=== PATIENT | female | born 2005 | race Caucasian/White ===

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

== ENCOUNTER 2023-01-27 23:29 | Emergency (ER) | payer MEDICAID ==
--- NOTE | 2023-01-27 23:45 | ED Physician Documentation ---
PD HPI ABD PAIN - Stated complaint Stated Complaint: ABD PX/NAUSEA - Chief complaint Chief Complaint: Abd Pain - History obtained from History obtained from: Patient - Additional information Additional information: HPI from patient. Patient complains of abdominal pain, right-sided and most pronounced in the right lower quadrant. Pain was of gradual onset approximately 3 to 4 days ago, steadily worsening. Pain is worse with palpation, movement. She has had nausea and vomiting with this pain. Patient says she has had similar pain in the past associated with an ovarian cyst (I note that she was evaluated 08/20/2022 in [facility] ED with CT and pelvic ultrasound revealing a right-sided ovarian cyst). In further conversation on this HPI, patient is indicating that she is only had this pain once or twice before. 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 : None HEENT: None Psych: Depression, Anxiety, Panic attacks, ADD/ADHD Musculoskeletal: None Derm: None - Past Surgical History Past Surgical History: No - Present Medications Home Medications: Ambulatory Orders Medication Instructions Recorded Confirmed No Known Home Medications 01/27/23 01/27/23 - Allergies Allergies/Adverse Reactions: Allergies Allergy/AdvReac Type Severity Reaction Status Date / Time No Known Drug Allergies Allergy Verified 01/27/23 23:40 - Social History Does the pt smoke?: Yes Smoking Status: Current every day smoker Does the pt drink ETOH?: No Does the pt have substance abuse?: Yes - Immunizations Immunizations are current?: Yes - POLST Patient has POLST: No PD ED PE NORMAL - Vitals Vital signs reviewed: Yes - General General: Alert and oriented X 3, No acute distress, Well developed/nourished - Cardiac Cardiac: RRR - Respiratory Respiratory: No respiratory distress, Clear bilaterally - Derm Derm: Normal color, Warm and dry - Extremities Extremities: No edema PD ED PE EXPANDED - Cardiac Cardiac: Murmur Present (2/6 end-systolic murmur as well as 2/6 diastolic murmur, greatest at left second ICS) - Abdomen Abdomen: Tender to palpation, Right abd, RLQ. No: Rebound, Guarding Results - Vitals Vitals: Oxygen O2 Source Room air - Labs Labs: Laboratory Tests 01/28/23 01/28/23 01/28/23 00:02 00:02 00:34 WBC 12.4 H RBC 4.49 Hgb 12.3 Hct 38.0 MCV 84.6 MCH 27.4 MCHC 32.4 RDW 13.0 Plt Count 190 MPV 9.4 Neut # (Auto) 7.1 H Lymph # (Auto) 3.9 H [place] # (Auto) 1.1 H Eos # (Auto) 0.2 Baso # (Auto) 0.1 Absolute Nucleated RBC 0.00 Nucleated RBC % 0.0 Sodium Potassium Chloride Carbon Dioxide Anion Gap BUN Creatinine Estimated GFR (MDRD) Glucose Calcium Total Bilirubin AST ALT Alkaline Phosphatase Total Protein Albumin Globulin Albumin/Globulin Ratio Lipase Urine Color YELLOW Urine Clarity CLEAR Urine pH 5.5 Ur Specific [place] >=1.030 H Urine Protein >=300 H Urine Glucose (UA) NEGATIVE Urine Ketones NEGATIVE Urine Occult Blood NEGATIVE Urine Nitrite NEGATIVE Urine Bilirubin NEGATIVE Urine Urobilinogen 0.2 (NORMAL) Ur Leukocyte Esterase NEGATIVE Urine RBC None Seen Urine WBC 0-3 Ur Squamous Epith Cells MOD Squamous H Urine Bacteria Rare Urine Casts 0-2 Hyaline Casts Ur Microscopic Review INDICATED Urine Culture Comments NOT INDICATED Urine HCG, Qual NEGATIVE 01/28/23 00:34 WBC RBC Hgb Hct MCV MCH MCHC RDW Plt Count MPV Neut # (Auto) Lymph # (Auto) [place] # (Auto) Eos # (Auto) Baso # (Auto) Absolute Nucleated RBC Nucleated RBC % Sodium 137 Potassium 3.5 Chloride 106 Carbon Dioxide 25 Anion Gap 6.0 BUN 8 Creatinine 0.8 Estimated GFR (MDRD) 92 Glucose 105 H Calcium 8.9 Total Bilirubin 0.3 AST 15 ALT 13 Alkaline Phosphatase 43 Total Protein 6.6 L Albumin 3.8 Globulin 2.8 Albumin/Globulin Ratio 1.4 Lipase 34 Urine Color Urine Clarity Urine pH Ur Specific [place] Urine Protein Urine Glucose (UA) Urine Ketones Urine Occult Blood Urine Nitrite Urine Bilirubin Urine Urobilinogen Ur Leukocyte Esterase Urine RBC Urine WBC Ur Squamous Epith Cells Urine Bacteria Urine Casts Ur Microscopic Review Urine Culture Comments Urine HCG, Qual - Rads (name of study) CT A/P with IV contrast Relevant Findings:: Prelim report reviewed, See rad report PD Medical Decision Making - ED course Complexity details: reviewed old records, reviewed results, re-evaluated patient, considered differential, d/w patient ED course: Tests ordered and results reviewed by me : CBC (minimal leukocytosis, wbc 12.4), ER abdominal panel (no concerning/contributory findings), UA (unremarkable) and UHCG (negative). CT A/P with IV contrast: radiology report includes "prominent mucosal enhancement in the gallbladder with diffuse gallbladder wall thickening. No calcified stones". While this could potentially relate to her symptoms, lack of abnormal LFTs and no radiopaque stones lowers likelihood. US is not in house/available at [facility] during patient's ED stay. We discussed this result and I recommended she seek follow up in outpatient setting when outpatient US can be ordered at outpatient provider's discretion. Also noted is "heterogeneous enhancement of the liver with periportal edema. The findings are also nonspecific and may reflect acute hepatitis in the appropriate clinical context." Would expect elevated LFTs (AST, ALT) in setting of acute hepatitis. This can also be further evaluated with outpatient RUQ US. Lastly, "nonspecific right adrenal nodule. Follow-up evaluation may obtained [sic] with an adrenal protocol MRI if clinically indicated." Patient is given 1 liter NS IV, 30mg toradol IV, and 4mg IV zofran. She reports residual abdominal pain which then resolved for remainder of ED stay with 4mg IV morphine. The results were d/w patient and advised to follow up; she will likely need further testing, some of which might depend on symptom persistence and/or pattern (ie- persistent, recurrent, or resolved). Similarly, she might benefit from further study, such as echocardiogram, if her heart murmurs are again heard on auscultation when she is reevaluated. Departure - Departure Disposition: 01 Home, Self Care Clinical Impression: Heart murmur Condition: Good Instructions: ED Abdominal Pain Female Non-Specific Abdominal Pain Follow-Up: Silvia Delacruz MD [Provider Admit Priv/Credential] - Comments: There were some abnormalities on tonight's test, none of which are specifically diagnostic nor needing further testing from an emergency standpoint at this time. However, as we discussed, it is important that you seek follow-up with a primary care provider for reevaluation of these abnormalities. I hear a heart murmur on your cardiac exam. This is an incidental finding (would not account for any of your symptoms), but needs reevaluation by your doctor and, at their discretion, further testing such as an echo (ultrasound of your heart) might be necessary. The CT scan of your abdomen and pelvis showed that your gallbladder is mildly thick, but there are no gallstones. Given that your liver function tests (blood test) are normal, this finding can be further evaluated in the outpatient setting with an ultrasound. This is another abnormality that you can discuss with your primary care provider and they can order this test if they feel it is appropriate. There is a small nodule on the CT scan noted in your right adrenal gland. This also would not account for any symptoms, and is not a cause for immediate concern. Once again, this is an abnormality that can be further evaluated by primary care provider with further testing at their discretion. In short, the cause of your symptoms is not apparent at this time despite these findings. Certainly, you can return to the emergency department at time that your symptoms are worse, or if you develop new/concerning signs/symptoms (such as fever, blood in your vomit or stool, worsening pain) Discharge Date/Time: 01/28/23 04:54
[2023-01-28 00:13] LABS: BILIRUBIN,URINE NEGATIVE (NEGATIVE); GLUCOSE, URINE (UA) NEGATIVE (NEGATIVE); KETONES,URINE (UA) NEGATIVE (NEGATIVE); LEUKOCYTE ESTERASE, URINE NEGATIVE (NEGATIVE); NITRITE,URINE NEGATIVE (NEGATIVE); OCCULT BLOOD,URINE NEGATIVE (NEGATIVE); PH,URINE 5.5 PH (5.0-7.5); PROTEIN,URINE >=300 mg/dL (NEGATIVE); UROBILINOGEN,URINE 0.2 (NORMAL) E.U./dL (NORMAL)
[2023-01-28 00:18] LABS: CLARITY,URINE CLEAR (CLEAR)
[2023-01-28] MEDS ORDERED: ONDANSETRON 4 MG/2 ML VIAL IVP STA (00:18)
[2023-01-28] MEDS ORDERED: KETOROLAC 30 MG/ML VIAL IVP STA (00:18)
[2023-01-28] MEDS ORDERED: SODIUM CHLORIDE 0.9% 1,000 ML IV STA (00:18)
[2023-01-28 00:24] LABS: BACTERIA,URINE Rare /HPF (None Seen); CASTS, URINE 0-2 Hyaline Casts /LPF; RBC,URINE None Seen /HPF (0-5); SQUAMOUS EPITHELIAL CELL,UR MOD Squamous (<= Few); WBC,URINE 0-3 /HPF (0-5)
[2023-01-28 00:43] LABS: BASOPHILS # (AUTO) 0.1 10^3/uL (0.0-0.1); BASOPHILS % (AUTO) 0.4 %; EOSINOPHILS # (AUTO) 0.2 10^3/uL (0.0-0.7); EOSINOPHILS % (AUTO) 1.3 %; HGB - HEMOGLOBIN 12.3 g/dL (12.0-16.0); LYMPHOCYTES # (AUTO) 3.9 10^3/uL (1.5-3.5); LYMPHOCYTES % (AUTO) 31.6 %; MEAN CORPUSCULAR HEMOGLOBIN 27.4 pg (27.0-31.0); MEAN CORPUSCULAR HGB CONC 32.4 g/dL (32.0-36.0); MEAN CORPUSCULAR VOLUME 84.6 fL (81.0-99.0); MEAN PLATELET VOLUME 9.4 fL (7.9-10.8); MONOCYTES # (AUTO) 1.1 10^3/uL (0.0-1.0); MONOCYTES % (AUTO) 8.8 %; NEUTROPHILS # (AUTO) 7.1 10^3/uL (1.5-6.6); NEUTROPHILS % (AUTO) 57.7 %; PLT - PLATELET COUNT 190 10^3/uL (130-450); RED BLOOD COUNT 4.49 10^6/uL (4.20-5.40); WHITE BLOOD COUNT 12.4 x10^3/uL (4.8-10.8)
[2023-01-28 00:52] LABS: ALBUMIN 3.8 g/dL (3.2-5.5); ALBUMIN/GLOBULIN RATIO 1.4 (1.0-2.2); BILIRUBIN,TOTAL 0.3 mg/dL (0.2-1.0); CALCIUM 8.9 mg/dL (8.5-10.3); CREATININE 0.8 mg/dL (0.4-1.0); POTASSIUM 3.5 mmol/L (3.5-5.0); TOTAL PROTEIN 6.6 g/dL (6.7-8.2)
[2023-01-28] MEDS ORDERED: iohexoL-300 100 ML VIAL ONE (01:02)
[2023-01-28 01:19] LABS: HCG UR QUAL NEGATIVE
[2023-01-28] MEDS ORDERED: iohexoL-300 100 ML VIAL IVP ONE (01:40)
[2023-01-28] MEDS ORDERED: MORPHINE 2 MG/ML CARPUJECT IVP STA (02:13)
--- NOTE | 2023-01-28 02:20 | CT Report ---
PROCEDURE: ABDOMEN/PELVIS W INDICATIONS: abd. pain CONTRAST: 100mL Omni 300 TECHNIQUE: After the administration of intravenous contrast, 5 mm thick sections acquired from the diaphragms to the symphysis. 5 mm thick coronal and sagittal reformats were acquired. For radiation dose reducti on, the following was used: automated exposure control, adjustment of mA and/or kV according to priyanka ent size. COMPARISON: CT abdomen pelvis 08/20/2022 FINDINGS: Image quality: Excellent. Lung bases: Unremarkable. Heart: Heart is normal in size. ABDOMEN: Liver:There is heterogeneous enhancement of the liver with mild periportal edema. Mild focal fatty r otation also demonstrated anteriorly in the left hepatic lobe along the falciform ligament. Gallbladder:The gallbladder demonstrates prominent mucosal enhancement with diffuse gallbladder wall thickening. No calcified gallstones. Biliary ducts: No biliary ductal dilatation. Pancreas: Unremarkable. Spleen: Normal in size. Adrenal Glands:There is an indeterminate right adrenal nodule measuring up to 2.0 cm redemonstrated. Kidneys and Ureters: No hydronephrosis. Stomach and Bowel: Stomach, small bowel loops, and colon are normal in caliber and wall thickness. T he appendix is not discretely well visualized but there are no definite pericecal inflammatory change s to suggest appendicitis. Peritoneum:There is a small amount of free fluid in the pelvis which appears within physiologic limi ts. No free air. Ventral Wall: No hernia. Abdominal Nodes: No retroperitoneal or mesenteric adenopathy by size criteria. Vessels: Aorta and inferior vena cava are normal in size. PELVIS: Pelvic Organs: Unremarkable. Bladder: Unremarkable. Pelvic Nodes: No enlarged lymph nodes. Miscellaneous: No inguinal hernias. Bones: Visualized osseous structures demonstrate no suspicious lesions. IMPRESSION: 1. Prominent mucosal enhancement in the gallbladder with diffuse gallbladder wall thickening. No calc ified gallstones. The findings are nonspecific but may represent cholecystitis. Further evaluation is recommended with ultrasound. 2. Heterogeneous enhancement of the liver with periportal edema. The findings are also nonspecific an d may reflect acute hepatitis in the appropriate clinical context. 3. Nonspecific right adrenal nodule. Follow-up evaluation may obtained with an adrenal protocol MRI i f clinically indicated. Reviewed by: Edgardo Crystal MD on 01/28/2023 2:19 AM PDT Approved by: Edgardo Crystal MD on 01/28/2023 2:19 AM PDT Station ID: [id number]
[2023-01-28 04:56] VITALS: BP 103/57
== END 2023-01-28 04:54 | disposition home or self-care (01) ==
LOC: ED 23:29
DX: R01.1 Cardiac murmur, unspecified (principal); F17.200 Nicotine dependence, unspecified, uncomplicated
CPT/HCPCS: 36415; 74177; 80053; 81001; 81025; 83690; 85025; 96374; 96375; 99284; Q9967; 81003; 87086

== ENCOUNTER 2023-05-31 17:49 | Emergency (ER) | payer MEDICAID ==
[2023-05-31 18:57] VITALS: BP 108/74; O2SAT 100
== END 2023-05-31 23:00 | disposition left against medical advice (07) ==
LOC: ED 17:49
DX: Z53.21 Procedure and treatment not carried out due to patient leaving prior to being seen by health care provider (principal)

== ENCOUNTER 2023-06-03 13:36 | Outpatient (CLI) | payer MEDICAID | END 2023-06-03 13:37 | disposition home or self-care (01) | LOC: DI 13:36 | PROVIDERS: ATTEND Pediatrics | DX: D50.9 Iron deficiency anemia, unspecified (principal); R07.9 Chest pain, unspecified; R01.2 Other cardiac sounds; R01.1 Cardiac murmur, unspecified; K02.9 Dental caries, unspecified; I35.1 Nonrheumatic aortic (valve) insufficiency | CPT/HCPCS: 93306 ==

== ENCOUNTER 2023-06-03 14:50 | Emergency (ER) | payer MEDICAID ==
[2023-06-03 14:58] VITALS: BP 128/88; O2SAT 98
--- NOTE | 2023-06-03 15:16 | XRAY Report ---
PROCEDURE: Knee 4 View LT INDICATIONS: Trauma TECHNIQUE: 4 views of the knee(s) were acquired. COMPARISON: None. FINDINGS: Bones: No fractures or dislocations. No suspicious bony lesions. No significant degenerative lopez ge. Soft tissues: No knee joint effusion. No suspicious soft tissue calcifications or masses. IMPRESSION: No acute bony abnormality. Reviewed by: Chacho Guerrier MD on 06/03/2023 3:15 PM PST Approved by: Chacho Guerrier MD on 06/03/2023 3:15 PM PST Station ID: [id number]
--- NOTE | 2023-06-03 15:57 | ED Physician Documentation ---
History of Present Illness - Stated complaint Stated Complaint: L KNEE PAIN - Chief complaint Chief Complaint: Ext Problem - History obtained from History obtained from: Patient - History of Present Illness Timing: Today Pain level max: 5 Pain level now: 5 - Additonal information Additional information: Patient is a 17-year-old female who recently started working at [employer] about a month ago. Over the past 1 to 2 weeks she has developed left knee pain radiates down the anterior aspect of the left leg into the left great toe. Worse with movement, better with rest. No numbness or tingling. No loss of bowel or bladder control. No back pain. No abdominal pain. No redness, no swelling. Review of Systems Constitutional: denies: Fever, Chills GI: denies: Nausea, Vomiting, Diarrhea : denies: Now EGA Skin: denies: Rash Musculoskeletal: denies: Neck pain, Back pain Neurologic: denies: Headache PD PAST MEDICAL HISTORY - Past Medical History Past Medical History: Yes Cardiovascular: None Respiratory: Asthma Neuro: None Endocrine/Autoimmune: None GI: None SHOT BAGGER: None : None HEENT: None Psych: Depression, Anxiety, Panic attacks, ADD/ADHD Musculoskeletal: None Derm: None - Past Surgical History Past Surgical History: No - Present Medications Home Medications: Ambulatory Orders Medication Instructions Recorded Confirmed Norethindrone-E.estradiol-Iron 1 each PO DAILY 05/31/23 06/03/23 [Ena 24 Fe 1 mg-20 Mcg Tablet] Albuterol Sulf [Ventolin Hfa 1 - 2 puffs INH Q4HR PRN 06/03/23 06/03/23 Inhaler] Meloxicam [Mobic] 7.5 mg PO BID PRN #20 tablet 06/03/23 - Allergies Allergies/Adverse Reactions: Allergies Allergy/AdvReac Type Severity Reaction Status Date / Time No Known Drug Allergies Allergy Verified 06/03/23 14:54 - Social History Does the pt smoke?: Yes Smoking Status: Current every day smoker Does the pt drink ETOH?: No Does the pt have substance abuse?: Yes - Immunizations Immunizations are current?: Yes - POLST Patient has POLST: No PD ED PE NORMAL - Vitals Vital signs reviewed: Yes - General General: Alert and oriented X 3, No acute distress - HEENT HEENT: Moist mucous membranes - Neck Neck: Supple, no meningeal sign - Cardiac Cardiac: RRR, Strong equal pulses - Respiratory Respiratory: No respiratory distress, Clear bilaterally - Abdomen Abdomen: Soft, Non tender, Non distended - Derm Derm: Warm and dry - Extremities Extremities: Other (Swelling to the infrapatellar bursa with tenderness at the site as well. There is also tenderness along the length of the tibialis anterior. ACL, MCL, PCLm LCL are intact. Otherwise neurovascular intact. No calf tenderness or cord.) - Neuro Neuro: Alert and oriented X 3 - Psych Psych: Normal mood, Normal affect Results - Vitals Vitals: Vital Signs - 24 hr 06/03/23 14:55 Temperature 37.1 C Heart Rate 76 Respiratory 16 Rate Blood Pressure 128/88 H O2 Saturation 98 Oxygen O2 Source Room air - Rads (name of study) L knee xray Relevant Findings:: Final report received, See rad report L tib fib xray Relevant Findings:: Final report received, See rad report PD Medical Decision Making - ED course Complexity details: reviewed results, re-evaluated patient, considered differential, d/w patient ED course: 17-year-old female with what appears to be infrapatellar bursitis and pain along the tibialis anterior. No skin changes. No crepitus. No acute findings on x- ray of the knee or tib-fib. Ambulating well. Neurovascular intact. No c ellulitis. No septic joint. We will place on pain medication for home. She can trial compression for her tibialis anterior pain. We will have her follow- up with her PCP for further care. Patient counseled regarding signs and symptoms for which I believe and urgent re-evaluation would be necessary. Patient with good understanding of and agreement to plan and is comfortable going home at this time This document was made in part using voice recognition software. While efforts are made to proofread this document, sound alike and grammatical errors may occur. Departure - Departure Disposition: 01 Home, Self Care Clinical Impression: Infrapatellar bursitis Qualifiers: Laterality: left Qualified Code(s): M70.52 - Other bursitis of knee, left knee Anterior tibialis tendinitis Qualifiers: Laterality: left Qualified Code(s): M76.812 - Anterior tibial syndrome, left leg Condition: Good Instructions: Bursitis, Tendonitis and Tenosynovitis Follow-Up: Ashlyn Frazier MD [Primary Care Provider] - Prescriptions: Meloxicam [Mobic] 7.5 mg PO BID PRN #20 tablet PRN Reason: Pain Comments: You were given a dose of a steroid here which should help to decrease the inflammation. We will place on anti-inflammatories as well. You can try compression sleeves, ice compression stocking over the tibialis anterior to see if this helps relieve your pain especially when you are working. Make sure to ice your knee and leg after work. Please follow-up with your doctor for further care. Your x-rays are normal today. Your prescription was sent to [facility] in [place]. Forms: PCP List Discharge Date/Time: 06/03/23 16:49
--- NOTE | 2023-06-03 16:18 | XRAY Report ---
PROCEDURE: Tib/Fib LT INDICATIONS: L leg pain TECHNIQUE: 2 views of the tibia and fibula were acquired. COMPARISON: None. FINDINGS: Bones: No fractures or dislocations. No suspicious bony lesions. Soft tissues: No suspicious soft tissue calcifications or masses. IMPRESSION: No acute bony abnormality. Reviewed by: Michael Adams MD on 06/03/2023 4:17 PM PST Approved by: Michael Adams MD on 06/03/2023 4:17 PM PST Station ID: [id number]
[2023-06-03] MEDS ORDERED: CHERRY SYRUP 10 ML UDC PO ONE (16:39)
[2023-06-03] MEDS ORDERED: MELOXICAM 7.5 MG TABLET PO STA (16:39)
[2023-06-03] MEDS ORDERED: DEXAMETHASONE 10 MG/ML VIAL PO STA (16:39)
== END 2023-06-03 16:49 | disposition home or self-care (01) ==
LOC: ED 14:50
DX: M70.52 Other bursitis of knee, left knee (principal); M76.812 Anterior tibial syndrome, left leg; F17.200 Nicotine dependence, unspecified, uncomplicated; D50.9 Iron deficiency anemia, unspecified; R07.9 Chest pain, unspecified; R01.2 Other cardiac sounds; R01.1 Cardiac murmur, unspecified; K02.9 Dental caries, unspecified; I35.1 Nonrheumatic aortic (valve) insufficiency
CPT/HCPCS: 73564; 73590; 93306; 99283; A9270

== ENCOUNTER 2023-12-23 16:26 | Emergency (ER) | payer MEDICAID ==
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
[2023-12-23 16:43] VITALS: BP 131/71; O2SAT 98
--- NOTE | 2023-12-23 17:10 | XRAY Report ---
PROCEDURE: Foot 3+V LT INDICATIONS: Trauma TECHNIQUE: 3 views of the foot were acquired. COMPARISON: None. FINDINGS: Bones: No fractures or dislocations. No suspicious bony lesions. Soft tissues: No tibiotalar joint effusion. Achilles tendon appears normal. IMPRESSION: No acute bony abnormality. Reviewed by: Fer Evans MD on 12/23/2023 5:09 PM PDT Approved by: Fer Evans MD on 12/23/2023 5:09 PM PDT Station ID: [id number]
== END 2023-12-23 17:22 | disposition home or self-care (01) ==
LOC: ED 16:26
DX: S99.922A Unspecified injury of left foot, initial encounter (principal); W18.49XA Other slipping, tripping and stumbling without falling, initial encounter; Y93.01 Activity, walking, marching and hiking; Y92.410 Unspecified street and highway as the place of occurrence of the external cause; F17.200 Nicotine dependence, unspecified, uncomplicated; Z79.3 Long term (current) use of hormonal contraceptives; Z79.899 Other long term (current) drug therapy
CPT/HCPCS: 99283

== ENCOUNTER 2024-04-10 14:52 | Outpatient (CLI) | payer MEDICAID ==
[2024-04-10 15:07] LABS: BASOPHILS # (AUTO) 0.1 10^3/uL (0.0-0.1); BASOPHILS % (AUTO) 0.3 %; EOSINOPHILS # (AUTO) 0.1 10^3/uL (0.0-0.7); EOSINOPHILS % (AUTO) 0.4 %; HCT - HEMATOCRIT 36.3 % (37.0-47.0); HGB - HEMOGLOBIN 12.1 g/dL (12.0-16.0); LYMPHOCYTES # (AUTO) 3.5 10^3/uL (1.5-3.5); LYMPHOCYTES % (AUTO) 16.3 %; MEAN CORPUSCULAR HEMOGLOBIN 28.1 pg (27.0-31.0); MEAN CORPUSCULAR HGB CONC 33.3 g/dL (32.0-36.0); MEAN CORPUSCULAR VOLUME 84.2 fL (81.0-99.0); MONOCYTES # (AUTO) 1.6 10^3/uL (0.0-1.0); MONOCYTES % (AUTO) 7.2 %; NEUTROPHILS # (AUTO) 16.2 10^3/uL (1.5-6.6); NEUTROPHILS % (AUTO) 75.2 %; PLT - PLATELET COUNT 244 10^3/uL (130-450); RED BLOOD COUNT 4.31 10^6/uL (4.20-5.40); RED CELL DISTRIBUTION WIDTH 13.2 % (12.0-15.0); WHITE BLOOD COUNT 21.6 x10^3/uL (4.8-10.8)
[2024-04-10 15:14] LABS: SLIDE REVIEW? Indicated
[2024-04-10 16:53] LABS: DIFFERENTIAL COMMENT MANUAL=AUTO DIFF; PLATELET ESTIMATE, MANUAL NORMAL (130-450,000) (NORMAL); PLATELET MORPHOLOGY NORMAL APPEARANCE (NORMAL); RBC MORPHOLOGY (MULTIPLE) NORMAL APPEARANCE (NORMAL)
[2024-04-11 04:09] LABS: HBsAG SCREEN Negative (Negative); HIV SCREEN 4TH GENERATION Non Reactive (Non Reactive)
[2024-04-11 05:13] LABS: RPR Non Reactive (Non Reactive)
[2024-04-11 12:10] LABS: VARICELLA-ZOSTER AB IGG 219 index (Immune >165)
== END 2024-04-10 14:53 | disposition home or self-care (01) ==
LOC: LAB 14:52
PROVIDERS: ATTEND Obstetrics & Gynecology
DX: Z34.00 Encounter for supervision of normal first pregnancy, unspecified trimester (principal)
CPT/HCPCS: 36415; 85025; 86592; 86762; 86787; 86803; 86850; 86900; 86901; 87086; 87340; 87389